=== PATIENT | female | born 1970 | race Caucasian/White ===

== ENCOUNTER 2016-11-01 21:02 | Emergency (ER) | payer OTHER ==
[~2016-11-01] VITALS: Ht 170.2 cm; Wt 59.1 kg
[~2016-11-01 21:02] MED LIST: PROM25TA14 PO
[2016-11-01 21:07] VITALS: BP 127/85; PULSE 104; RESP 16; O2SAT 98
--- NOTE | 2016-11-01 22:40 | ED.REPORT ---
HPI-General Illness Date of Service Nov 01, 2016 ED Provider: Dr. Gutierrez 46 y/o female with a hx of IV heroin and meth use, Hep C and MRSA presents to the ED complaining of severe shaking = about 6 hours ago. The pt states she last used heroin, obtained from a reliable source, 5 hours ago and 15 minutes later she began shaking and experiencing chills. Associated sx include subjective fever, nausea, vomiting for the last 2 hours, myalgia and neck pain due to severe shaking. In the ED, her temperature is 100.2. The pt is signed up for an intake methadone program starting next week. She denies . Nursing Notes Stated Complaint: NAUSEA, VOMITING, HEADACHE, POSSIBLY SEPTIC Chief Complaint: Female Abdominal Pain Nursing Notes Reviewed: Yes Allergies: Coded Allergies: cephalexin (Verified Allergy, Severe, HIVES, RESP DIFFICULTY, 05/01/14) clindamycin (Verified Allergy, Intermediate, Hives, 10/11/15) Scheduled PRN Promethazine (Promethazine) 25 Mg Tablet 25 MG PO Q6H PRN PRN For Nausea General Time Seen by MD: 22:40 Chief Complaint Other (shaking) Hx Obtained From: Patient Arrived By: Walk-in Sudden in Onset?: Yes Onset Occurred: 1 - 4 hours ago Symptom Duration: Since onset Quality: Painful (myalgia) Severity: Current: Moderate Severity: Maximum: Moderate Recent Healthcare: Recent doctor visit Past Medical History Past Medical History 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 Hep C Reports: Migraines Past Surgical History 2 elective breast augmentation surgeries 1994 and 2008, knee surgery bladder surgery Smoking History Current Every Day Smoker Social History Alcohol Use: Denies alcohol use Drug Use: IV drugs (Heroin), Meth Other Social History: Good social support, Local resident, Homeless 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 Physical Exam Vital Signs Vital Signs Date Time Temp Pulse Resp B/P Pulse Ox O2 Delivery O2 Flow Rate FiO2 11/02/16 02:29 36.8 78 16 104/56 97 Room Air 11/02/16 01:22 37.2 11/01/16 23:50 37.8 91 118/62 94 Room Air 11/01/16 21:07 37.4 104 16 127/85 98 Room Air Initial VS: Reviewed Head / Eyes: Atraumatic, Normocephalic, PERRL ENT: Mucous membranes moist, Conjunctiva normal, No scleral icterus Neck: Supple, Non-tender, Full range of motion Abdomen / GI: Soft, Non-tender, No guarding, No rebound, No distention Extremities: Vascular intact, Neuro intact, No swelling, No tenderness Skin: Warm, Dry, No cyanosis Neurologic: Alert, Oriented, Nonfocal General/Constitutional: Awake, Alert, Cooperative Febrile Diaphoretic I agree with the pt's assessment that she might be septic. Neck: Atraumatic, Supple, Full range of motion No nuchal rigidity. Respiratory / Chest: Atraumatic, Breath sounds NL, Breath sounds = bilat, No respiratory distress, No rales, No rhonchi, No wheezing Cardiovascular: Heart rate NL, Regular rhythm, No gallop Heart Sounds / Murmur: Positive: Systolic murmur present.. Interpretation & Diagnostics Lab Results Interpretation Result Diagram: 11/01/16 2338 11/01/16 2338 Test 11/01/16 22:53 11/01/16 23:38 11/01/16 23:39 11/02/16 02:10 Urine Color Dark yellow (YELLOW) Urine Appearance Cloudy (CLEAR,HAZY) Urine pH 5.5 (5.0-8.0) Urine Specific [place] 1.016 (1.003-1.035) Urine Protein Negativemg/dL (NEG,TRACE) Urine Glucose (UA) Negativemg/dL (NEGATIVE) Urine Ketones Negativemg/dL (NEGATIVE) Urine Occult Blood Negative (NEGATIVE) Urine Nitrite Negative (NEGATIVE) Urine Bilirubin Negative (NEGATIVE) Urine Urobilinogen Normalmg/dL (NORMAL) Urine Leukocyte Esterase Small (NEGATIVE) Urine RBC 0-2/hpf (0-2) Urine WBC 11-50/hpf (0-5) Urine Epithelial Cells Moderate/hpf (NONE-MOD) Urine Crystals Amorphous urates (NONE Urine Bacteria Few/hpf (NONE-FEW) Urine Hyaline Casts None/lpf (NONE) Urine Granular Casts None seen (NONE SEEN) Urine Waxy Casts None seen (NONE SEEN) Urine Red Blood Cell Casts None seen (NONE SEEN) Urine White Blood Cell Casts None seen (NONE SEEN) Urine Mucus Present (None Seen) Urine Trichomonas None seen (NONE SEEN) Urine Yeast None (NONE SEEN) Urinalysis Comment None Urine Culture Reflexed Indicated Hold Urine Received (Received) White Blood Count 7.9th/mm3 (3.8-10.1) Red Blood Count 4.07mil/mm3 (3.90-5.20) Hemoglobin 13.2g/dL (12.0-15.6) Hematocrit 38.6% (35.0-46.0) Mean Corpuscular Volume 94.8fL (81-100) Mean Corpuscular Hemoglobin 32.4pg (27.0-35.0) Mean Corpuscular Hemoglobin Concent 34.2% (32.0-37.0) Red Cell Distribution Width 11.8% (12.3-15.4) Platelet Count 193bil/L (150-400) Neutrophils (%) (Auto) 92.0% (40-74) Lymphocytes (%) (Auto) 6.3% (14-46) Monocytes (%) (Auto) 1.0% (4-12) Eosinophils (%) (Auto) 0.3% (0-5) Basophils (%) (Auto) 0.1% (0-3) Sodium Level 135mEq/L (134-144) Potassium Level 3.6mEq/L (3.5-5.2) Chloride Level 95mEq/L (97-108) Carbon Dioxide Level 22mmol/L (18-29) Blood Urea Nitrogen 10mg/dL (6-24) Creatinine 0.56mg/dL (0.57-1.00) Estimat Glomerular Filtration Rate 166mL/min (>59) Glucose Level 101mg/dL (60-99) Calcium Level 9.1mg/dL (8.5-10.1) Magnesium Level 1.4mg/dL (1.6-2.6) Total Bilirubin 0.9mg/dL (0.0-1.2) Aspartate Amino Transf (AST/SGOT) 58U/L (0-50) Alanine Aminotransferase (ALT/SGPT) 30U/L (0-32) Alkaline Phosphatase 83U/L (25-150) Total Protein 7.5g/dL (6.4-8.4) Albumin 3.7g/dL (3.4-5.0) Lipase 12U/L (13-60) Lactic Acid Level 1.0mmol/L (0.4-2.0) Total Creatine Kinase 44U/L (21-215) Procalcitonin 2.17ng/mL (0.00-0.08) CSF Appearance Clear (CLEAR) CSF Color Colorless (COLORLESS) CSF WBC 0/mm3 (0-5) CSF RBC 0/mm3 CSF Mononuclear WBCs % CSF Polynuclear WBCs % CSF Other Cells CSF Glucose 63mg/dL (45-90) CSF Total Protein 21mg/dL (15-45) X-Ray Chest Interpretation Chest Xray Interpretation: Normal View: Portable, 1 view Interpretation / Wet Read by: Wet read ED physician Procedures Lumbar Puncture Time: 02:18 Procedure Performed by: ED physician Consent / Setup / Site Prep: Informed consent provided, Consent from patient Skin Preparation Agent: Betadine Local Anesthesia: Lidocaine 1% Procedural Sedation/Analgesia: Analgesia: Dilaudid LP Needle Gauge: 25 gauge Inserted Needle at: L4 L5 Post-Procedure / Complications: Antibiotic oint applied, Dressing applied, No complications, Tolerated procedure well, Patient stable Re-Eval/Medical Decision Med Decision/Clinical Course This is a very pleasant 46-year-old female who presents with subjective fever chills headache and vomiting shortly after injecting heroin. She looked moderately on presentation. She was resuscitated with fluids and Zofran. Laboratory work was reassuring. No indicators biochemically of sepsis. Due to fact that she had a rather precipitous headache and looked ill I felt that meningitis and subarachnoid hemorrhage needed to be completely ruled out. Ms. Moran concurred. Informed consent was obtained. Risks were explained. Pain, infection, nerve injury, failed attempts and spinal headache. CT scan brain was performed and was normal. Lumbar puncture was performed without any difficulty. CSF studies came back with 0 whites and 0 reds and no polys. Chest x-ray was normal. Urine sample was negative. Blood cultures have been drawn. No bacterial source of infection was identified. I think this may have been a biochemical reaction to the heroin. Either way after fluids and Zofran she looked and felt much better. She had some pain associated with the lumbar puncture and this was adequately treated. At discharge vitals were stable. She never spiked a fever. She looked good. She felt ready to be discharged home. I will ask her to have a recheck in 8-10 hours. I did consult with our hospitalist and we have decided to give her a single dose of antibiotics air on the side of caution and event that she turns out to be bacteremic. She has one to come back here in 12 hours to have the first set of blood cultures reviewed. Source of Hx: Old records Counseled Regarding: Diagnosis, Lab results Discharge & Departure Primary Impression: Heroin abuse Additional Impressions: Headache Headache type: unspecified Headache chronicity pattern: acute headache Intractability: not intractable Qualified Code: R51 - Headache Chills (without fever) Discharge Condition All VS Reviewed: Yes Patient Instructions: Acute Headache (GEN), Adverse Drug Reaction (ED) Additional Instructions: The CAT scan, x-ray, cervical spinal fluid testing and laboratory work was all normal. No evidence of an infection. I suspect that her reaction was to the heroin. Stop abusing heroin. Follow through with the Suboxone clinic. Do not drive tonight's received sedating medications. It was very nice meeting you. Do not hesitate to return if any problems or any new or worsened symptoms. We have sent out blood cultures. There is a chance that she will a bloodstream infection and this will need antibiotics. This needs to be followed up with daily. I would like you to come back to the hospital and have this checked in about 8-12 hours. If the cultures are negative and he can check daily for the next couple of days. He may also do this through the referral clinic or any urgent care in town.. Referrals: Kaushal Alford MD (PCP) Scribe Attestation Portions of this note were transcribed by Guanako Whitley. I,, personally performed the history, physical exam and medical decision-making;I reviewed and confirmed the accuracy of the information in the transcribed note. Signed by Pamela Jordan. 11/02/16 00:23 copies to: Kaushal Alford MD, Todd P DO Nov 01, 2016 22:40 Guanako Whitley Nov 01, 2016 23:13
[2016-11-01] MEDS ORDERED: Ondansetron 2 mg/mL 2 mL Inj IVPUSH PRN (23:00)
[2016-11-01] MEDS: 0.9% Sodium Chloride 1,000 ML IV SCH (23:44)
[2016-11-01 23:50] VITALS: BP 118/62; PULSE 91; O2SAT 94
[2016-11-01 23:59] LABS: BASOPHILS % (AUTO) 0.1 % (0-3); EOSINOPHILS % (AUTO) 0.3 % (0-5); Mean Corpuscular Hemoglobin 32.4 pg (27.0-35.0); Mean Corpuscular Volume 94.8 fL (81-100); Platelet Count 193 bil/L (150-400)
[2016-11-02 00:02] LABS: APPEARANCE,URINE CLOUDY (CLEAR,HAZY); COLOR,URINE DARK YELLOW (YELLOW); OCCULT BLOOD,URINE NEGATIVE (NEGATIVE); PH,URINE 5.5 (5.0-8.0); UROBILINOGEN,URINE NORMAL (NORMAL)
[2016-11-02 00:17] LABS: Magnesium 1.4 mg/dL (1.6-2.6)
[2016-11-02] MEDS ORDERED: Piperacillin-Tazo 3.375 Gm Inj 3.375 GM in Dextrose 5% Minibag Plus 50 ML IV ONE ×2 (00:20→03:05)
[2016-11-02] MEDS: 0.9% Sodium Chloride 1,000 ML IV SCH (00:58)
[2016-11-02 02:29] VITALS: BP 104/56; PULSE 78; RESP 16; O2SAT 97
[2016-11-02] MEDS ORDERED: HYDROmorphone 1 mg/mL Inj IVPUSH ONE (02:35)
[2016-11-02 02:36] LABS: APPEARANCE,CSF CLEAR (CLEAR); COLOR,CSF COLORLESS (COLORLESS); WHITE BLOOD CELL,CSF 0 /mm3 (0-5)
[2016-11-02 04:19] VITALS: BP 101/48; PULSE 63; RESP 16; O2SAT 96
--- NOTE | 2016-11-02 08:04 | DRSVH ---
PROCEDURE: CT BRAIN WITHOUT CONTRAST ([id number]) INDICATIONS: imda, headache, stiff neck TECHNIQUE: Noncontrast 4.5 mm thick angled axial sections acquired from the foramen magnum to the vertex, with c oronal reformats. COMPARISON: [facility], CT, BRAIN W/O CONTRAST, 09/07/2006, 20:21. FINDINGS: Image quality: Excellent. CSF spaces: Basal cisterns are patent. No extra-axial fluid collections. Ventricles are normal in size and shape. Brain: No midline shift. No intracranial masses or hemorrhage. Frias-white matter interface is norm al. Skull and face: Calvarium and visualized facial bones are intact, without suspicious lesions. Sinuses: Visualized sinuses and mastoids are clear. IMPRESSION: Normal head CT. 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 Dictated by: Itzel Spann M.D. on 11/02/2016 at 8:01 Approved by: Itzel Spann M.D. on 11/02/2016 at 8:02
--- NOTE | 2016-11-02 08:28 | DRSVH ---
PROCEDURE: X-RAY CHEST ONE VIEW, PORTABLE ([id number]) INDICATIONS: fever, chills, ivda TECHNIQUE: One view of the chest was acquired. COMPARISON: [facility], , CHEST 1VW (PORTABLE), 12/13/2007, 21:31. FINDINGS: Surgical changes and devices: None. Lungs and pleura: No pleural effusions or pneumothorax. Lungs are clear. Mediastinum: Mediastinal contours appear normal. Heart size is normal. Bones and chest wall: No suspicious bony lesions. Overlying soft tissues appear unremarkable. IMPRESSION: No acute cardiopulmonary disease. Dictated by: Calderon Kyle [facility] Interpreted: Yariel Matos MD on 11/02/2016 at 8:25 Transcribed by: NIKOLAI on 11/02/2016 at 8:27 Approved by: Yariel Matos M.D. on 11/02/2016 at 9:16
== END 2016-11-02 04:18 | disposition home or self-care (01) ==
LOC: SED 21:02
DX: F11.10 Opioid abuse, uncomplicated (principal); R68.83 Chills (without fever); R50.9 Fever, unspecified; G43.909 Migraine, unspecified, not intractable, without status migrainosus; F17.200 Nicotine dependence, unspecified, uncomplicated; Z59.0 Homelessness; Z88.1 Allergy status to other antibiotic agents
CPT/HCPCS: 36415; 62270; 70450; 71010; 80053; 81000; 81025; 82550; 82945; 83605; 83690; 83735; 84145; 84155; 85025; 87040; 87070; 87086; 87088; 87205; 89051; 96361; 96365; 96375; 99285; J2405; J2543; J7030

== ENCOUNTER 2016-11-09 04:04 | Emergency (ER) | payer OTHER ==
[~2016-11-09] VITALS: Ht 170.2 cm; Wt 62.7 kg
[2016-11-09 04:15] VITALS: BP 141/87; PULSE 74; RESP 16; O2SAT 99
--- NOTE | 2016-11-09 04:17 | ED.REPORT ---
HPI-Extremity Problem Upper Date of Service Nov 09, 2016 ED Provider: Colton Galindo MD Pt is a 46 y/o female w/ a hx of IVDA, frequent MRSA abscesses, Hep C, presenting to the ED c/o an area of redness, swelling, and pain over the dorsum of the right hand onset yesterday. The patient was seen in the ED 11/01 for rigors after injecting heroin. She was treated with IV antibiotics and LP and chest x-ray during that visit were negative. Yesterday, she began to develop swelling over an area of the dorsum of her right hand which has become painful and red. She denies fever, chills. Nursing Notes Stated Complaint: RT HAND SWOLLEN,NAUSEA Chief Complaint: Extremity Trauma Nursing Notes Reviewed: Yes Allergies: Coded Allergies: cephalexin (Verified Allergy, Severe, HIVES, RESP DIFFICULTY, 11/09/16) clindamycin (Verified Allergy, Intermediate, Hives, 11/09/16) Scheduled PRN Promethazine (Promethazine) 25 Mg Tablet 25 MG PO Q6H PRN PRN For Nausea General Time Seen by MD: 04:15 Chief Complaint Other (R hand swelling) Hx Obtained From: Patient Arrived By: Walk-in Onset Occurred: Yesterday Symptom Duration: Since onset Location: : Hand right Quality: Painful Severity: Current: Moderate Severity: Maximum: Moderate Recent Healthcare: Recent doctor visit, Recent testing Past Medical History Past Medical History IV heroin and methamphetamine abuse MRSA - frequent abscesses Hep C Reports: Migraines Past Surgical History 2 elective breast augmentation surgeries 1994 and 2008, knee surgery bladder surgery Smoking History Current Every Day Smoker Social History Alcohol Use: Denies alcohol use Drug Use: IV drugs, Meth Other Social History: Good social support, Local resident, Homeless 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 Physical Exam Initial Vital Signs Vital Signs (First) Date Time Temp Pulse Resp B/P Pulse Ox O2 Delivery O2 Flow Rate FiO2 11/09/16 04:15 36.8 74 16 141/87 99 Room Air Initial VS: Reviewed, Vital signs normal Head / Eyes: Atraumatic, Normocephalic, PERRL ENT: Mucous membranes moist, Conjunctiva normal, No scleral icterus Neck: Supple, Full range of motion Respiratory: No respiratory distress Cardiovascular: Intact distal pulses Abdomen / GI: No distention Lower Extremities: Vascular intact, Neuro intact, No swelling Neurologic: Alert, Oriented, Nonfocal Psychiatric: Mood/affect normal, Behavior normal, Normal thought content General/Constitutional: Awake, Alert, No acute distress, Cooperative, Not toxic appearing Skin: Warm, Dry, Intact Abscess Notes: Large abscess over the ulnar aspect of the dorsum fo the right hand Multiple track mueller Procedures Incision & Drainage Abscess Time: 04:39 Procedure Performed by: ED physician Consent / Setup / Site Prep: Consent from patient, Hand hygiene observed, Stand sterile technique, Sterile drapes applied Location of Abscess: Dorsum of right hand Skin Preparation Agent: [place] Local Anesthesia: Lidocaine w epi 1% Incised Abscess with Scalpel: #11 Pus Drained: Medium, Purulent discharge Irrigation: Yes, Copious Post-Procedure / Complications: Packing placed (1/4 inch), Dressing applied , No complications, Condition improved, Tolerated procedure well, Patient stable Re-Eval/Medical Decision Med Decision/Clinical Course 46-year-old female with a long history of opioid dependence/heroin use. She was in methadone treatment but relapsed and used heroin. She is now attempting to get back into treatment. Abscess drained on the right hand without difficulty. Patient is being discharged home on trimethoprim sulfamethoxazole. Follow-up as needed for recurrent abscess. Source of Hx: Old records Re-Evaluation/Progress : Time of Eval: 04:53 Re-Evaluation/Progress Note: Pt rechecked. I&D performed without complication. Informed pt of plan for discharge. Pt understands and agrees with plan for discharge. F/U instructions and RTER warnings given. All questions addressed. Counseled Regarding: Diagnosis, Need for follow-up, When/why to return to ED Discharge & Departure Impression: Primary Impression: Abscess of hand, right Additional Impression: Heroin abuse Disposition: Home Discharge Condition All VS Reviewed: Yes Condition: Stable Patient Instructions: Abscess Follow-up (ED), Abscess Incision and Drainage (DC ) Additional Instructions: Change the dressing daily or if it soaks through. Remove the packing in 1-2 days. Follow-up as needed if there is worsening. Trimethoprim sulfamethoxazole DS one by mouth twice a day, #20 dispensed. Referrals: Kaushal Alford MD (PCP) Scribe Attestation Portions of this note were transcribed by Luke Beach. I, Dr. Galindo personally performed the history, physical exam and medical decision-making; I reviewed and confirmed the accuracy of the information in the transcribed note. copies to: Kaushal Alford MD, Howard L MD Nov 09, 2016 04:17 [place] Nov 09, 2016 04:20
[2016-11-09] MEDS ORDERED: Lidocaine 2%-Epi 1:100,000 20 mL Inj ONE (04:29)
[2016-11-09 05:06] VITALS: BP 132/89; PULSE 71; RESP 17; O2SAT 99
[2016-11-09] MEDS ORDERED: _Trimethoprim-Sulfa 160/800 mg Tablet PO SCH (08:30)
== END 2016-11-09 05:13 | disposition home or self-care (01) ==
LOC: SED 04:04
DX: L02.511 Cutaneous abscess of right hand (principal); F11.10 Opioid abuse, uncomplicated; G43.909 Migraine, unspecified, not intractable, without status migrainosus; F17.200 Nicotine dependence, unspecified, uncomplicated; Z86.14 Personal history of Methicillin resistant Staphylococcus aureus infection; Z98.890 Other specified postprocedural states; Z88.1 Allergy status to other antibiotic agents

== ENCOUNTER 2016-11-10 16:49 | Observation (INO) | payer OTHER ==
[~2016-11-10] VITALS: Ht 170.2 cm; Wt 62.1 kg
[2016-11-10 16:51] VITALS: BP 152/96; PULSE 106; RESP 22; O2SAT 98
--- NOTE | 2016-11-10 17:12 | ED.REPORT ---
HPI-Abd Pain F 40 and Over Date of Service Nov 10, 2016 ED Provider: Gilles Bianchi MD Patient is a 46 year old female with a history of IV heroin use and hepatitis C who presents to the ED complaining of vomiting for the past 3 days. Associated symptoms include subjective fever, chills, headache and nausea. Patient states she has abdominal pain but attributes it to vomiting so much. She reports she is unable to pass gas and denies diarrhea. The patient reports that she was seen here at the ED on 11/09/16 where she had an abscess drained and was placed on antibiotics. She states she has been unable to keep anything down and is worried she hasn't been able to keep down the antibiotic.Patient states that she has used IV heroin for the past 3 days but she smoked yesterday. Nursing Notes Stated Complaint: VOMITING Chief Complaint: Female Abdominal Pain Nursing Notes Reviewed: Yes Allergies: Coded Allergies: cephalexin (Verified Allergy, Severe, HIVES, RESP DIFFICULTY, 11/10/16) clindamycin (Verified Allergy, Intermediate, Hives, 11/10/16) Scheduled PRN Promethazine (Promethazine) 25 Mg Tablet 25 MG PO Q6H PRN PRN For Nausea General Time Seen by MD: 17:09 Chief Complaint Other (vomiting) Hx Obtained From: Patient Arrived By: Walk-in Sudden in Onset?: Yes Onset Occurred: 3 days ago Symptom Duration: Since onset Location: : Diffuse Quality: Dull Severity: Current: Mild Associated with: Reports: Chills, Nausea Recent Healthcare: Recent doctor visit Past Medical History Past Medical History 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 Skin: Denies Itching Physical Exam Vital Signs Vital Signs (First) Date Time Temp Pulse Resp B/P Pulse Ox O2 Delivery O2 Flow Rate FiO2 11/10/16 16:51 36.6 106 22 152/96 98 Room Air Initial VS: Reviewed General/Constitutional: Awake, Alert Distress / Hydration: Positive: Distress mild actively retching Respiratory / Chest: Atraumatic, Breath sounds NL, Breath sounds = bilat, No respiratory distress Cardiovascular: Heart rate NL, Regular rhythm, Heart sounds NL, No gallop, No murmurs, No rubs Abdomen: Atraumatic, Soft Back: Atraumatic, No CVA tenderness Head / Eyes: Normocephalic, PERRL, EOMI Skin: Warm, Dry Neurologic: Oriented X3, Speech NL, No motor deficits, No sensory deficits R hand 1cm abscess on dorsum near 5th mcp joint. slight surrounding erythema. no proximal streaking Interpretation & Diagnostics Lab Results Interpretation Result Diagram: 11/10/16 1811 11/10/16 1811 Test 11/10/16 18:11 11/10/16 19:53 White Blood Count 7.3th/mm3 (3.8-10.1) Red Blood Count 4.31mil/mm3 (3.90-5.20) Hemoglobin 13.8g/dL (12.0-15.6) Hematocrit 39.8% (35.0-46.0) Mean Corpuscular Volume 92.3fL (81-100) Mean Corpuscular Hemoglobin 32.0pg (27.0-35.0) Mean Corpuscular Hemoglobin Concent 34.7% (32.0-37.0) Red Cell Distribution Width 11.8% (12.3-15.4) Platelet Count 283bil/L (150-400) Neutrophils (%) (Auto) 67.6% (40-74) Lymphocytes (%) (Auto) 22.9% (14-46) Monocytes (%) (Auto) 8.6% (4-12) Eosinophils (%) (Auto) 0.5% (0-5) Basophils (%) (Auto) 0.1% (0-3) Sodium Level 130mEq/L (134-144) Potassium Level 4.1mEq/L (3.5-5.2) Chloride Level 87mEq/L (97-108) Carbon Dioxide Level 23mmol/L (18-29) Blood Urea Nitrogen 16mg/dL (6-24) Creatinine 1.60mg/dL (0.57-1.00) Estimat Glomerular Filtration Rate 49mL/min (>59) Glucose Level 113mg/dL (60-99) Lactic Acid Level 0.8mmol/L (0.4-2.0) Calcium Level 10.4mg/dL (8.5-10.1) Magnesium Level 1.9mg/dL (1.6-2.6) Total Bilirubin 1.3mg/dL (0.0-1.2) Aspartate Amino Transf (AST/SGOT) 93U/L (0-50) Alanine Aminotransferase (ALT/SGPT) 41U/L (0-32) Alkaline Phosphatase 95U/L (25-150) Total Protein 9.6g/dL (6.4-8.4) Albumin 4.5g/dL (3.4-5.0) Lipase 11U/L (13-60) Procalcitonin 0.96ng/mL (0.00-0.08) Urine Color Dark yellow (YELLOW) Urine Appearance Slightly cloudy Urine pH 5.5 (5.0-8.0) Urine Specific [place] 1.030 (1.003-1.035) Urine Protein 30mg/dL (NEG,TRACE) Urine Glucose (UA) Negativemg/dL (NEGATIVE) Urine Ketones Tracemg/dL (NEGATIVE) Urine Occult Blood Trace (NEGATIVE) Urine Nitrite Negative (NEGATIVE) Urine Bilirubin Negative (NEGATIVE) Urine Urobilinogen Normalmg/dL (NORMAL) Urine Leukocyte Esterase Negative (NEGATIVE) Urine RBC 0-2/hpf (0-2) Urine WBC 0-5/hpf (0-5) Urine Epithelial Cells Moderate/hpf (NONE-MOD) Urine Crystals None seen (NONE SEEN) Urine Bacteria Few/hpf (NONE-FEW) Urine Hyaline Casts 5/20/lpf (NONE) Urine Granular Casts None seen (NONE SEEN) Urine Waxy Casts None seen (NONE SEEN) Urine Red Blood Cell Casts None seen (NONE SEEN) Urine White Blood Cell Casts None seen (NONE SEEN) Urine Mucus Present (None Seen) Urine Trichomonas None seen (NONE SEEN) Urine Yeast None (NONE SEEN) Urinalysis Comment None Urine Culture Reflexed Not indicated Procedures Incision & Drainage Abscess I & D Abscess: #14 scalpel Time: 21:22 Procedure Performed by: ED physician Consent / Setup / Site Prep: Consent from patient, Time-out performed, Hand hygiene observed Location of Abscess: right dorsum Skin Preparation Agent: Other (chloraprep) Local Anesthesia: Lidocaine 1% Pus Drained: Bloody Irrigation: Yes, Copious Post-Procedure / Complications: Dressing applied, No complications, Condition improved, Tolerated procedure well, Patient stable Re-Eval/Medical Decision Med Decision/Clinical Course 46-year-old female with vomiting 3 days since being started on trimethoprim sulfa. Reddening is increased sharply from baseline, she appears dehydrated is tachycardic on arrival and is mildly hyponatremic. Normal saline 1 L and repeat I&D of right upper extremity abscess which did not return any pus. Bactrim has been discontinued. I believe it would be reasonable at this point to not give further antibiotics and observe her hand infection. Will admit to the hospitalist service for hydration and observation. Re-Evaluation/Progress #1: Time of Eval: 20:06 Re-Evaluation/Progress Note: Discussed labs and plan for I&D of abscess on the right hand. Discussed plan for admit. Patient understands and agrees to plan. All questions were addressed. Re-Evaluation/Progress #2: Time of Eval: 21:38 Patient Status: Condition improved Re-Evaluation/Progress Note: Finished I&D. Patient is feeling less nauseous Consultation : Referral / Consult Name: Jordyn Mahajan DO Consulted With: Hospitalist Call Returned at: 20:19 Exerciser Horse: Agrees with eval, Agrees with plan, Accepts admit Counseled Regarding: Diagnosis, Lab results, Need for admission Discharge & Departure Primary Impression: Acute renal failure Acute renal failure type: unspecified Qualified Code: N17.9 - Acute kidney failure, unspecified Additional Impression: Abscess of hand, right Disposition: ADMITTED TO HOSPITAL Discharge Condition All VS Reviewed: Yes Condition: Stable Referrals: Kaushal Alford MD (PCP) Pamela Attestation Portions of this note were transcribed by Alisha Mckeon. I, Dr. Bianchi personally performed the history, physical exam and medical decision-making; I reviewed and confirmed the accuracy of the information in the transcribed note. Signed by:Pamela Cam, 11/10/16 copies to: Kaushal Alford MD, Donald L MD Nov 10, 2016 17:11 Cherry Mckeon Nov 10, 2016 17:21
[2016-11-10] MEDS ORDERED: 0.9% Sodium Chloride 1,000 ML IV ONE (17:17)
[2016-11-10] MEDS ORDERED: Promethazine Inj 25 MG in 0.9% Sodium Chloride 50 ML IV ONE (17:20)
[2016-11-10 18:15] LABS: BASOPHILS % (AUTO) 0.1 % (0-3); EOSINOPHILS % (AUTO) 0.5 % (0-5); MONOCYTES % (AUTO) 8.6 % (4-12); Mean Corpuscular Volume 92.3 fL (81-100); NEUTROPHILS % (AUTO) 67.6 % (40-74); Platelet Count 283 bil/L (150-400)
[2016-11-10 18:38] LABS: Magnesium 1.9 mg/dL (1.6-2.6)
[2016-11-10 20:20] VITALS: BP 143/92; PULSE 83; RESP 16; O2SAT 98
[2016-11-10 20:22] LABS: APPEARANCE,URINE SLIGHTLY CLOUDY (CLEAR,HAZY); COLOR,URINE DARK YELLOW (YELLOW)
[2016-11-10 20:23] LABS: OCCULT BLOOD,URINE TRACE (NEGATIVE); PH,URINE 5.5 (5.0-8.0); UROBILINOGEN,URINE NORMAL (NORMAL)
[2016-11-10] MEDS ORDERED: Alum-Mag Hydrox-Simeth 30 mL Suspension PO PRN (21:05)
[2016-11-10] MEDS ORDERED: Ondansetron 2 mg/mL 2 mL Inj IVPUSH PRN (21:05)
[2016-11-10] MEDS ORDERED: Polyethylene Glycol (PEG) 17 Gm Powder PO PRN (21:05)
[2016-11-10 22:23] VITALS: BP 143/92; PULSE 83; RESP 16; O2SAT 98
[2016-11-10 22:30] VITALS: BP 131/76; PULSE 79; RESP 16; O2SAT 97
[2016-11-11] VITALS (7 sets, daily range): BP systolic 124–140; BP diastolic 76–93; PULSE 70–77; RESP 16; O2SAT 96–98
[2016-11-11] MEDS: Heparin 5,000 Unit/mL Inj SUBQ SCH ×3 (00:12→19:59)
--- NOTE | 2016-11-11 03:28 | PCM.HPMED ---
Subjective Date of Service Nov 10, 2016 Primary Provider: Admitting Physician: Jordyn Mahajan DO Primary Care Physician: Kaushal Alford MD Attending Physician: Jordyn Mahajan DO Chief Complaint: Hand abscess History of Present Illness: 38-year-old female with history of IV heroin and methamphetamine use, MRSA abscesses, and recent hep C diagnosis presents to the emergency department due to 5 days of right hand pain, nausea and vomiting, and fever. The patient states that 5 days ago she began noticing increased erythema, swelling, and pain over the medial dorsal surface (fifth MCP joint) after injecting heroin into that area the day before. The patient states that she presented on that date emergency department, although previous presentation on November 01 was due to shaking, subjective fevers, nausea and vomiting following a heroin injection. In any case, the patient presented yesterday and the abscess was drained without difficulty. She was discharged with Bactrim. She returns today due to continuing nausea vomiting and increased swelling of the abscess. She states that she has had a measured fever of 103, and is experiencing chills, nausea, and nonbloody emesis 10 daily for the last 3 days. Patient also states she is lost her appetite. She denies any diarrhea, dizziness, lightheadedness, abdominal pain, chest pain, shortness of breath, tingling or loss of sensation. Patient has been using heroin for about 6 years and previously got clean for about 2 before relapsing. The patient was on methadone before moving to [place] where she was unable to continue methadone use, causing her to fly home in relapse. Patient is attempting to get back into rehabilitation. 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 Patient also had a previous history of methamphetamine use as well as alcohol. Patient reports that Dr. Hamilton diagnosed her with hepatitis C last week, she is yet to start treatment. In the emergency department the wound is again being drained. The patient was given 1 L normal saline and promethazine for nausea. Blood work shows an elevated pro-calcitonin, LFTs, acute kidney injury, and multiple other electrolyte imbalances. There is no leukocytosis. Urine was also clean. Blood cultures were obtained. Review of Systems: Complete review of systems performed; pertinent positives and negatives per history of present illness, all other systems reviewed and are negative Allergies Coded Allergies: cephalexin (Verified Allergy, Severe, HIVES, RESP DIFFICULTY, 11/10/16) clindamycin (Verified Allergy, Intermediate, Hives, 11/10/16) Home Medications None reported PMH IV heroin and methamphetamine abuse MRSA - frequent abscesses Hep C Reports: Migraines Surgical History Left knee surgery ACL/MCL/Meniscus 2 elective breast augmentation surgeries 1994 and 2008 Family History No family history of alcohol or drug abuse; no history of hep C, no history of cardiac disease per patient Social History Hx Alcohol Use: Yes (25 years of 2 drinks per day) Hx Substance Use: Yes (Heroin) Hx Tobacco Use: No Smoking Status: Never Smoker Living Arrangement: with Friends/Roommate Exam Vital Signs Vital Sign - Last Date Time Temp Pulse Resp B/P Pulse Ox O2 Delivery O2 Flow Rate FiO2 11/10/16 20:20 37.1 83 16 143/92 98 Room Air Exam General: Cooperative and unkept female who appears older than stated age HEENT: PERRLA, EOMI, nonicteric, membranes dry Lymph: No lymphadenopathy Cardio: Regular rate and rhythm no murmurs rubs or gallops, pulses equal upper and lower extremity Respiratory: CTA bilaterally, no wheezes, no crackles, good respiratory effort GI: Soft, positive bowel sounds, nontender, nondistended : no giron in place Extremities: No edema,sensation intact, numerous medium and large sized abscesses throughout the upper extremities Psych: Appropriate mood and affect Neuro: CN II through XII grossly intact, sensation intact throughout Skin: No rash, no ecchymosis, warm, dry Lab and Diagnostics Result Diagram: 11/10/16 1811 11/10/16 1811 Assessment & Plan 38-year-old female with history of IV heroin and methamphetamine use, MRSA abscesses, and recent hep C diagnosis presents to the emergency department due to 5 days of right hand pain, nausea and vomiting, and fever. Right hand abscess second to IV drug use; present on admission; ongoing -Patient is a persistent and chronic IV drug user with abscesses occupying most of her venous access in the upper extremities -Patient was recently seen for the abscess which was drained and reaccumulated within 24 hours -Low suspicion currently for osteomyelitis although this is ongoing possibility -Debridement in the emergency department -Blood cultures obtained in the emergency department -Procalcitonin 0.96 -Vancomycin and cefepime started -Lactic acid normal -Recheck labs in a.m. -Blood cultures positive will reinitiate workup for endocarditis and consult infectious disease -CT in AM, ordered FRED, acute, POA -last creatinine 0.59 one week prior to presentation -possible prerenal given history (reviewed recent medical records in EMR) / recent tmp-smx use -repeat creatinine in am Hepatitis C infection; present on admission; ongoing -Patient reports that she was recently diagnosed with hepatitis C by Dr. Kenny -Elevated LFTs -Last record in [facility] (reviewed outpatient records) indicates last appointment was January 2016 at which time the patient had not started treatment due to ongoing alcohol use -Viral load -Follow-up with GI as outpatient -Repeat CMP Chronic IV drug and alcohol abuse -Patient is attempting to get back into rehabilitation -She stopped previously but relapsed after she lost contact with methadone -Social work consult Disposition: Patient has been admitted to the general medical floor under observation more Full code Pain Evaluation: Adequate Pain Control Resuscitation Status: CPR: Attempt Resuscitation Attending Statement The patient was seen and examined together with house staff on 11/10/2016 and I agree with the history, exam and plan as outlined in the note above. Daryl Best DO Nov 10, 2016 21:14 Jordyn Mahajan DO Nov 11, 2016 04:00
[2016-11-11] MEDS: Vancomycin Dose per Pharmacist XX SCH ×2 (04:07→08:30)
[2016-11-11] MEDS ORDERED: Vancomycin Inj 1,000 MG in IV Premix 1 EACH IV ONE (04:25)
--- NOTE | 2016-11-11 05:25 | PCM.CONPHA ---
Subjective Date of Service: Nov 11, 2016 Requesting Provider: Daryl Best DO Hand abscess History of Present Illness hand abscess, 2/2 to IVDU Reason for Pharmacy Consult: Vancomycin Dosing Objective Assessment/Plan Assessment/Plan A/ - 38 y/o female patient receiving Vancomycin and Cefepime for empirical coverage of her hand abscess, secondary to IV drug injection - Afebrile at admission, WBC: 7.3, blood cultures are pending - Wt: 62.1kg, ht: 170cm, BMI: 21.4kg/m2, SCr: 1.6ml/dL (FRED, unknown baseline ), estimated clearance~43ml/min - ID consult ordered P/ - Give one time Vancomycin 1G iv. Floor pharmacist will follow up with am lab and order random trough if needed and determine the regimen Thank you for consulting clinical pharmacy in the care of the patient Noble Dooley Nov 11, 2016 05:25
[2016-11-11 05:35] LABS: BASOPHILS % (AUTO) 0.2 % (0-3); EOSINOPHILS % (AUTO) 1.5 % (0-5); MONOCYTES % (AUTO) 14.5 % (4-12); Mean Corpuscular Hemoglobin 31.7 pg (27.0-35.0); Mean Corpuscular Volume 93.3 fL (81-100); NEUTROPHILS % (AUTO) 48.7 % (40-74); Platelet Count 254 bil/L (150-400)
[2016-11-11] MEDS ORDERED: 0.9% Sodium Chloride 100 ML ONE (05:47)
[2016-11-11] MEDS ORDERED: Cefepime Inj 2,000 MG in Dextrose 5% Minibag Plus 100 ML IV SCH (08:30)
--- NOTE | 2016-11-11 14:16 | PCM.PNMED ---
Subjective Date of Service Nov 11, 2016 Subjective Right hand pain controlled. Afebrile. Awaiting hand CT scan Exam Vital Signs Vital Sign - Last Date Time Temp Pulse Resp B/P Pulse Ox O2 Delivery O2 Flow Rate FiO2 11/11/16 13:10 36.3 77 16 132/85 98 Room Air Intake and Output 11/10/16 11/10/16 11/11/16 Cumulative From/Thru 15:00 23:00 07:00 11/10/16 16:51 - 11/11/16 05:28 Intake Total 400 ml 400 ml Output Total 0 ml 0 ml Balance 400 ml 400 ml Intake Oral 400 ml 400 ml Output Urine Total 0 ml 0 ml # Bowel Movements 0 0 Exam General: Cooperative and unkept female who appears older than stated age HEENT: PERRLA, EOMI, nonicteric, membranes dry Lymph: No lymphadenopathy Cardio: Regular rate and rhythm no murmurs rubs or gallops, pulses equal upper and lower extremity Respiratory: CTA bilaterally, no wheezes, no crackles, good respiratory effort GI: Soft, positive bowel sounds, nontender, nondistended : no giron in place Extremities: No edema,sensation intact, numerous medium and large sized nodules throughout the upper extremities. Right hand is swollen dorsally. No fluctuance.tender Psych: Appropriate mood and affect Neuro: CN II through XII grossly intact, sensation intact throughout Skin: No rash, no ecchymosis, warm, dry IVs and Medications Medications Reviewed: Medications were reviewed in detail Lab and Diagnostics Result Diagram: 11/11/1651911/11/16519 Assessment & Plan 38-year-old female with history of IV heroin and methamphetamine use, MRSA abscesses, and recent hep C diagnosis presents to the emergency department due to 5 days of right hand pain, nausea and vomiting, and fever. #Right hand abscess second to IV drug use; failed outpatient treatment, present on admission; ongoing -Patient is a persistent and chronic IV drug user with abscesses occupying most of her venous access in the upper extremities -Patient was recently seen for the abscess which was drained and reaccumulated within 24 hours -Low suspicion currently for osteomyelitis although this is ongoing possibility -Debridement in the emergency department -Blood cultures pending -Procalcitonin 0.96 -Continue Vancomycin and cefepime -Lactic acid normal -CT of right hand pending #Hepatitis C infection; present on admission; ongoing -Patient reports that she was recently diagnosed with hepatitis C by Dr. Kenny -Elevated LFTs -Last record in [facility] (reviewed outpatient records) indicates last appointment was January 2016 at which time the patient had not started treatment due to ongoing alcohol use -Viral load -Follow-up with GI as outpatient #Chronic IV drug and alcohol abuse -Patient is attempting to get back into rehabilitation -She stopped previously but relapsed after she lost contact with methadone -Social work consult Disposition: Patient has been admitted to the general medical floor under observation possible discharge tomorrow if no abscess on repeat CT Full code VTE Mechanical Devices: Intermittant Pneumatic CD Resuscitation Status: CPR: Attempt Resuscitation Paulie العراقي MD Nov 11, 2016 14:16
[2016-11-11] MEDS ORDERED: Oritavancin Diphosphate 400 mg Vial IV ONE (15:50)
[2016-11-11] MEDS ORDERED: Oritavancin Diphosphate 1,200 MG in Dextrose 5% 880 ML IV ONE (15:55)
--- NOTE | 2016-11-11 16:50 | CONS ---
[address] [address] CONSULTATION REPORT PATIENT: WINIFRED WHATLEY : 1970 MR#: [id number] ADMIT: 11/10/2016 JOB ID: [id number] DATE OF SERVICE: 11/11/[address] العراقي for this consult. REASON FOR CONSULT: Right dorsal hand infection in an IV drug user. HISTORY OF THE PRESENT ILLNESS: The patient is a 46-year-old woman with longstanding IV drug use. She has been seen twice in the emergency department over the past five days with pain in the dorsal right hand, the site of an IV of any intravenous drug injection. She reports that the pain began after an injection in the right dorsal hand about six days ago. She then went to the emergency department because of swelling and pain in association with shaking chills, fever, nausea, and vomiting. That ER visit was approximately one week ago. At that time, the wound was evaluated. It was also notable that the patient had severe headache and so on the first ED visit on the she had a CT of the brain as well as a lumbar puncture that were negative. At the time of that admission the right dorsal hand inflammation was fairly minimal. She subsequently returned to the ER on November 09. At that time the hand was very clearly infected and she has continued to have fevers, chills, sweats, nausea, vomiting and generalized malaise. At that time, the patient had some drainage which was done from the right hand without any difficulty. Unfortunately it does not appear a culture was sent and she was sent home on trimethoprim sulfamethoxazole on November 09. She then returned to the ER for a third time on November 10, yesterday, with continued nausea, vomiting, shaking chills, and pain in the right hand and associated with some nausea and vomiting. At that time, the decision was made to admit her at least briefly to evaluate the situation. The patient tells me that overnight since admission her fever and chills seem to have moderated in her right hand and is actually getting better. She has full range of motion in that right hand, no weakness. She still has some nausea but no vomiting. No significant cough or sore throat. PAST MEDICAL HISTORY: 1. IV heroin and methamphetamine use. 2. History of recurrent MRSA abscesses. 3. Hepatitis C for which she is being followed by our GI Clinic. 4. Status post breast augmentation surgeries. 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 She is a cigarette smoker. She used to be a heavy alcohol consumer and has basically switched she says to these injectable drugs. She states that she is living with her children in the local area. FAMILY HISTORY: Negative for TB but it is notable that she had a significant other it sounds like at one point who did have TB and she was evaluated and found not to be infected herself. REVIEW OF SYSTEMS: Was done. At this point, the patient reports fever and chills that are moderating. She has a headache but it is mild and not as bad as the other day when she had an LP. No visual complaints. No significant sore throat. No cough or chest pain. She has had nausea and vomiting. They seem better overnight somewhat. No diarrhea, no dysuria. She has pain in her right hand. Remainder of the review of systems negative. PHYSICAL EXAMINATION: Reveals an afebrile woman. She has been afebrile since admission. Temp 36.3, pulse 77, respiratory rate 16, blood pressure 132/85. She is saturating well on room air. She is not in any great discomfort. She is completely lucid. Eyes: Without conjunctivitis or scleral icterus. Oral cavity: No thrush or hairy leukoplakia. Neck supple without adenopathy. Lungs clear. Back: Straight without tenderness. Cardiac tones: Regular rate and rhythm without murmur. Abdomen soft, nontender. Extremities: The lower extremities appear benign. There is no synovitis, cellulitis, or edema. Left hand is normal. Right hand has about of 3 x 2 cm present on the dorsal right hand over the distal metatarsals. No pus can be expressed from this wound and it is moderately tender but not dramatically so. The remainder of the physical exam is normal including a normal neurologic exam. LABORATORIES: Include white count 5500, normal diff basically. Creatinine 0.91. AST and ALT are moderately elevated, consistent with her diagnosis of hep C. Procalcitonin yesterday 0.96, today 0.69. Urinalysis without white cells. Hep C is pending but I do not think it is really necessary as she is already being followed for that. Blood cultures from the were done and they were negative. Spinal fluid on the was done and was negative. Blood cultures done yesterday are pending. We still have no cultures of her hand despite her visits. IMPRESSION: This patient seems quite toxic given that she has a relatively localized infection in the right hand. The tentative plan according Dr. العراقي is to get a CT scan of her hand and if that appears benign to send her home as she has full range of motion and strength in the right hand and no longer looks toxic. In general I am okay with this plan but I think it might be reasonable to keep her overnight and make sure at least her blood cultures are negative given that she had quite a bit of systemic toxicity from this localized hand infection. It will also be important to make sure that her CT of the hand does not show any bony involvement or abscess, but I think that is unlikely. In view of her history of ongoing IV drug use and apparent failure with Bactrim at home, though it was a very short course, I think it is reasonable to treat her with oritavancin to ensure that this infection resolves and she need not visit the ER anymore with this problem. RECOMMENDATIONS: 1. I would get a MRSA screen of the neck. 2. Will stop the vancomycin and cefepime she is receiving. 3. Will give the patient a single dose of oritavancin. this will of course only work if this is gram-positive but I think that is the overwhelming likelihood in this situation. 4. The patient can be discharged but I would probably inclined to hang on to her at least until tomorrow to see how her systemic toxicity does as well as to ensure that the final reading on the hand CT is available. That scan was just completed but there is, as of yet, no official report. 5. A MRSA screen of the nares will be ordered as this may facilitate, to some degree, our antibiotic choices.
--- NOTE | 2016-11-11 16:50 | DRSVH ---
PROCEDURE: CT HAND RIGHT W/O CONTRAST (60332) INDICATIONS: abscess TECHNIQUE: Noncontrast 1 mm axial sections acquired through the carpal bones, with coronal and sagittal reformat s. For radiation dose reduction, the following was used: automated exposure control, adjustment of mA and/or kV according to patient size. COMPARISON: None. FINDINGS: Image quality: Excellent. Bones: Normal Soft tissues: Diffuse soft tissue swelling is present over the dorsum of the hand at the fourth and f ifth metacarpal level. The swelling appears to be entirely extracapsular and is likely cellulitis in the appropriate clinical setting. No measurable fluid collection is present to indicate drainable abs cess. The area of swelling is estimated at 1.2 cm thick by 3 cm in width by 4.2 cm in line. IMPRESSION: Dorsal medial soft tissue swelling right hand with no definable abscess or early evidence of osteomyelitis.. Dictated by: James Vera M.D. on 11/11/2016 at 16:42 Approved by: James Vera M.D. on 11/11/2016 at 16:47
[2016-11-11] MEDS ORDERED: Vancomycin Inj 1,000 MG in IV Premix 1 EACH IV SCH (17:00)
--- NOTE | 2016-11-11 18:50 | NUR ---
Pain/PO Morphine Pt c/o headache today and pain in hand. PO 7.5mg PO Morphine given; effective. Pt states, "headache better, pain in hand gone."
--- NOTE | 2016-11-11 18:53 | NUR ---
IV Oritavancin IV Oritavancin started today; pt had only 24gauge in L hand placed by IV therapy. IV Oritavancin to be flushed only with D5 not NS per pharmacy and can only run at 100mls/hr instead of 333.33 as recommended due to small gauge of IV start. Pharmacy notified; no new orders. Will continue to monitor with frequent rounds.
[2016-11-12] MEDS: Heparin 5,000 Unit/mL Inj SUBQ SCH ×2 (03:25→08:30)
[2016-11-12 05:24] VITALS: PULSE 81
[2016-11-12 05:48] VITALS: BP 135/86; PULSE 76; RESP 16; O2SAT 98
--- NOTE | 2016-11-12 06:27 | NUR ---
IV/pain/anxiety Pt is alert, oriented, and able to make needs known. Pt complaint of pain and discomfort on left hand IV site right after IV Oritavancin completion. IV site was red and puffy. IV removed, heat then Ice applied per pharmacy recommendation and extremity elevated under pillow. New IV site inserted on on left forearm and pt states much relief on left hand. No concerns on new IV site for far. Medicated for headache with morphine 7.5mg PO x2 this shift with some relief reported. c/o being anxious of going on withdrawal. MD made aware and ativan 0.25ml administered per order. Pt is resting comfortably in bed and call light w/in reach. Relief reported after ativan administration. Will continue to monitor.
--- NOTE | 2016-11-12 07:34 | NUR ---
V-tach Per Heading Repairer; 5 beats v-tach, pt not symptomatic and sleeping. Will alert MD Red Team and monitor with frequent rounds.
--- NOTE | 2016-11-12 08:01 | PCM.DIMED ---
Discharge Instructions Date of Service Nov 12, 2016 Dates of Hospitalization Nov 10, 2016 at 20:55 Discharge Diagnosis Discharge Diagnosis #Right hand abscess second to IV drug use; failed outpatient treatment, present on admission; ongoing #Hepatitis C infection; present on admission; ongoing #Chronic IV drug and alcohol abuse Diet Discharge Diet: No restrictions Activity Discharge Activity: No restrictions Call your provider Call your provider for: Fever or Chills, Shortness of breath, Bleeding, Chest pain, Vomitting, Excessive diarrhea, Weakness (unilateral) Patient Instructions Patient Instructions You were hospitalized due to right hand abscess. Incision and drainage done in the emergency room. You received oritavancin /long-acting antibiotic. Please follow-up with PCP in 1 week. Please follow up with outpatient chemical dependency clinic for help of IV drug abuse. Follow-up Provider: Kaushal Alford MD Follow-up with PCP in: 1 week Paulie العراقي MD Nov 12, 2016 08:01
[2016-11-12 08:36] VITALS: BP 138/96; PULSE 81; RESP 14; O2SAT 99
--- NOTE | 2016-11-12 09:46 | NUR ---
Discharge Pt to discharge to home; 1 IV access discontinued; c/o headache "2/10 per pt and tolerable, request no pain medications." A&Ox3, able to RODRIGUEZ, steady gait, VSS. Pt in a hurry to make appt at 10AM at Methadone clinic in [place]. Pt given written and verbal instructions to f/u with PCP within 1 week and to f/u with outpatient [facility]one Clinic appt time 10; pt instructed to seek medical attention if s/s return or progress worse and states verbal understanding of all instructions. No Rx's given this visit. Pt walked off unit by RN with all personal belongings.
--- NOTE | 2016-11-12 15:08 | PCM.DC.MED ---
Discharge Summary Date of Service Nov 12, 2016 Dates of Hospitalization Date of Hospital Admission Nov 10, 2016 at 20:55 Date of Discharge: Nov 12, 2016 Providers: Admitting Physician: Jordyn Mahajan DO Primary Care Physician: Kaushal Alford MD Attending Physician: Paulie العراقي MD Diagnosis at Time of Discharge Diagnosis at Time of Discharge #Right hand abscess second to IV drug use; failed outpatient treatment, present on admission; ongoing #Hepatitis C infection; present on admission; ongoing #Chronic IV drug and alcohol abuse Consultations ID Dr Petit Procedures XRay, CTs & MRIs PROCEDURE: CT HAND RIGHT W/O CONTRAST ([id number]) INDICATIONS: abscess TECHNIQUE: Noncontrast 1 mm axial sections acquired through the carpal bones, with coronal and sagittal reformats. For radiation dose reduction, the following was used: automated exposure control, adjustment of mA and/or kV according to patient size. COMPARISON: None. FINDINGS: Image quality: Excellent. Bones: Normal Soft tissues: Diffuse soft tissue swelling is present over the dorsum of the hand at the fourth and fifth metacarpal level. The swelling appears to be entirely extracapsular and is likely cellulitis in the appropriate clinical setting. No measurable fluid collection is present to indicate drainable abscess. The area of swelling is estimated at 1.2 cm thick by 3 cm in width by 4.2 cm in line. IMPRESSION: Dorsal medial soft tissue swelling right hand with no definable abscess or early evidence of osteomyelitis.. Dictated by: James Vera M.D. on 11/11/2016 at 16:42 Brief History per HPI 38-year-old female with history of IV heroin and methamphetamine use, MRSA abscesses, and recent hep C diagnosis presents to the emergency department due to 5 days of right hand pain, nausea and vomiting, and fever. The patient states that 5 days ago she began noticing increased erythema, swelling, and pain over the medial dorsal surface (fifth MCP joint) after injecting heroin into that area the day before. The patient states that she presented on that date emergency department, although previous presentation on November 01 was due to shaking, subjective fevers, nausea and vomiting following a heroin injection. In any case, the patient presented yesterday and the abscess was drained without difficulty. She was discharged with Bactrim. She returns today due to continuing nausea vomiting and increased swelling of the abscess. She states that she has had a measured fever of 103, and is experiencing chills, nausea, and nonbloody emesis 10 daily for the last 3 days. Patient also states she is lost her appetite. She denies any diarrhea, dizziness, lightheadedness, abdominal pain, chest pain, shortness of breath, tingling or loss of sensation. Patient has been using heroin for about 6 years and previously got clean for about 2 before relapsing. The patient was on methadone before moving to [place] where she was unable to continue methadone use, causing her to fly home in relapse. Patient is attempting to get back into rehabilitation. 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 Patient also had a previous history of methamphetamine use as well as alcohol. Patient reports that Dr. Hamilton diagnosed her with hepatitis C last week, she is yet to start treatment. In the emergency department the wound is again being drained. The patient was given 1 L normal saline and promethazine for nausea. Blood work shows an elevated pro-calcitonin, LFTs, acute kidney injury, and multiple other electrolyte imbalances. There is no leukocytosis. Urine was also clean. Blood cultures were obtained. Hospital Course 38-year-old female with history of IV heroin and methamphetamine use, MRSA abscesses, and recent hep C diagnosis presents to the emergency department due to 5 days of right hand pain, nausea and vomiting, and fever. #Right hand abscess second to IV drug use; failed outpatient treatment, present on admission; ongoing -Patient is a persistent and chronic IV drug user with abscesses occupying most of her venous access in the upper extremities -Patient was recently seen for the abscess which was drained and reaccumulated within 24 hours -no osteomyelitis on CT -Debridement done in the emergency department -Blood cultures NGTD -Procalcitonin 0.96 -initially treated with Vancomycin and cefepime -Lactic acid normal -CT of right hand no abscess -recieved a dose of oritavancin discharge home off abx #Hepatitis C infection; present on admission; ongoing -Patient reports that she was recently diagnosed with hepatitis C by Dr. Kenny -Elevated LFTs -Last record in [facility] (reviewed outpatient records) indicates last appointment was January 2016 at which time the patient had not started treatment due to ongoing alcohol use -Viral load pending,f/u outpt -Follow-up with GI as outpatient #Chronic IV drug and alcohol abuse -Patient is attempting to get back into rehabilitation -She stopped previously but relapsed after she lost contact with methadone -Social work resource info given Disposition:discharged home condition stable Exam Vital Signs (Last) Date Time Temp Pulse Resp B/P Pulse Ox O2 Delivery O2 Flow Rate FiO2 11/12/16 08:36 36.7 81 14 138/96 99 Room Air Exam General: Cooperative and unkept female who appears older than stated age HEENT: PERRLA, EOMI, nonicteric, membranes dry Lymph: No lymphadenopathy Cardio: Regular rate and rhythm no murmurs rubs or gallops, pulses equal upper and lower extremity Respiratory: CTA bilaterally, no wheezes, no crackles, good respiratory effort GI: Soft, positive bowel sounds, nontender, nondistended : no giron in place Extremities: No edema,sensation intact, numerous medium and large sized nodules throughout the upper extremities. Right hand is swollen dorsally. No fluctuance.tender Psych: Appropriate mood and affect Neuro: CN II through XII grossly intact, sensation intact throughout Skin: No rash, no ecchymosis, warm, dry Test 11/10/16 18:11 11/10/16 19:53 11/11/16 05:20 Magnesium Level 1.9mg/dL (1.6-2.6) Lipase 11U/L (13-60) Urine Color Dark yellow (YELLOW) Urine Appearance Slightly cloudy Urine pH 5.5 (5.0-8.0) Urine Specific [place] 1.030 (1.003-1.035) Urine Protein 30mg/dL (NEG,TRACE) Urine Glucose (UA) Negativemg/dL (NEGATIVE) Urine Ketones Tracemg/dL (NEGATIVE) Urine Occult Blood Trace (NEGATIVE) Urine Nitrite Negative (NEGATIVE) Urine Bilirubin Negative (NEGATIVE) Urine Urobilinogen Normalmg/dL (NORMAL) Urine Leukocyte Esterase Negative (NEGATIVE) Urine RBC 0-2/hpf (0-2) Urine WBC 0-5/hpf (0-5) Urine Epithelial Cells Moderate/hpf (NONE-MOD) Urine Crystals None seen (NONE SEEN) Urine Bacteria Few/hpf (NONE-FEW) Urine Hyaline Casts 5/20/lpf (NONE) Urine Granular Casts None seen (NONE SEEN) Urine Waxy Casts None seen (NONE SEEN) Urine Red Blood Cell Casts None seen (NONE SEEN) Urine White Blood Cell Casts None seen (NONE SEEN) Urine Mucus Present (None Seen) Urine Trichomonas None seen (NONE SEEN) Urine Yeast None (NONE SEEN) Urinalysis Comment None Urine Culture Reflexed Not indicated White Blood Count 5.5th/mm3 (3.8-10.1) Red Blood Count 4.04mil/mm3 (3.90-5.20) Hemoglobin 12.8g/dL (12.0-15.6) Hematocrit 37.7% (35.0-46.0) Mean Corpuscular Volume 93.3fL (81-100) Mean Corpuscular Hemoglobin 31.7pg (27.0-35.0) Mean Corpuscular Hemoglobin Concent 34.0% (32.0-37.0) Red Cell Distribution Width 12.0% (12.3-15.4) Platelet Count 254bil/L (150-400) Neutrophils (%) (Auto) 48.7% (40-74) Lymphocytes (%) (Auto) 34.9% (14-46) Monocytes (%) (Auto) 14.5% (4-12) Eosinophils (%) (Auto) 1.5% (0-5) Basophils (%) (Auto) 0.2% (0-3) Sodium Level 135mEq/L (134-144) Potassium Level 3.9mEq/L (3.5-5.2) Chloride Level 93mEq/L (97-108) Carbon Dioxide Level 24mmol/L (18-29) Blood Urea Nitrogen 15mg/dL (6-24) Creatinine 0.91mg/dL (0.57-1.00) Estimat Glomerular Filtration Rate 95mL/min (>59) Glucose Level 98mg/dL (60-99) Lactic Acid Level 0.6mmol/L (0.4-2.0) Calcium Level 9.3mg/dL (8.5-10.1) Total Bilirubin 1.1mg/dL (0.0-1.2) Aspartate Amino Transf (AST/SGOT) 82U/L (0-50) Alanine Aminotransferase (ALT/SGPT) 35U/L (0-32) Alkaline Phosphatase 80U/L (25-150) Total Protein 7.8g/dL (6.4-8.4) Albumin 4.0g/dL (3.4-5.0) Procalcitonin 0.69ng/mL (0.00-0.08) Discharge Medications As needed Promethazine (Promethazine) 25 Mg Tablet 25 MG PO Q6H PRN PRN For Nausea Prescribed by: BONNY RODRÍGUEZ MD Followup Plan Disposition: home Discharge Diet: No restrictions Discharge Activity: No restrictions Patient Instructions You were hospitalized due to right hand abscess. Incision and drainage done in the emergency room. You received oritavancin /long-acting antibiotic. Please follow-up with PCP in 1 week. Please follow up with outpatient chemical dependency clinic for help of IV drug abuse. Follow-up Provider: Kaushal Alford MD Follow-up with PCP in: 1 week Time spent 35 minutes counselling on substance abuse copies to: Kaushal Alford MD, Melaku MD Nov 12, 2016 15:07
[2016-11-12] MEDS ORDERED: Vancomycin Serum Trough XX ONE (16:30)
== END 2016-11-12 09:39 | disposition home or self-care (01) ==
LOC: SED 16:49 → OSC 20:55
PROVIDERS: ADMIT Internal Medicine; ATTEND Internal Medicine
DX: L02.511 Cutaneous abscess of right hand (principal); F11.20 Opioid dependence, uncomplicated; F15.20 Other stimulant dependence, uncomplicated; B19.20 Unspecified viral hepatitis C without hepatic coma; F10.20 Alcohol dependence, uncomplicated; Z86.14 Personal history of Methicillin resistant Staphylococcus aureus infection; G43.909 Migraine, unspecified, not intractable, without status migrainosus; N17.9 Acute kidney failure, unspecified; F17.210 Nicotine dependence, cigarettes, uncomplicated
CPT/HCPCS: 10060; 36415; 73200; 80053; 81000; 83605; 83690; 83735; 84145; 85025; 87040; 87522; 87641; 96361; 96365; 96366; 96367; 96375; 99285; G0378; J0692; J1644; J2060; J2270; J2407; J2550; J3370; J7030; J7070

== ENCOUNTER 2016-11-15 18:56 | Emergency (ER) | payer OTHER ==
[~2016-11-15] VITALS: Ht 170.2 cm; Wt 70.5 kg
[2016-11-15 19:16] VITALS: BP 129/84; PULSE 79; RESP 16; O2SAT 95
--- NOTE | 2016-11-15 19:41 | ED.REPORT ---
HPI-Rash / Abscess Date of Service Nov 15, 2016 ED Provider: Dante Vieyra MD A 46 year old female with a history of IV heroin and methamphetamine abuse, MRSA with frequent abscesses and hepatitis C presents to the ED complaining of an abscess. The pt was recently admitted for abscesses and was on antibiotics while in the hospital. The antibiotics were discontinued when she was discharged two days ago, and an abscess recurred on her right forearm. The pt is now experiencing significant pain in the area. Nursing Notes Stated Complaint: INFECTED IV SITE, RECURRING INFECTION Chief Complaint: Skin Rash/Abscess Nursing Notes Reviewed: Yes Allergies: Coded Allergies: cephalexin (Verified Allergy, Severe, HIVES, RESP DIFFICULTY, 11/10/16) clindamycin (Verified Allergy, Intermediate, Hives, 11/10/16) Scheduled PRN Promethazine (Promethazine) 25 Mg Tablet 25 MG PO Q6H PRN PRN For Nausea General Time Seen by MD: 19:41 Chief Complaint Abscess Hx Obtained From: Patient Arrived By: Walk-in Onset Occurred: 2 days ago Symptom Duration: Since onset Recent Healthcare: Recent doctor visit, Recent hospitalization Similar Sx Previous: Yes Past Medical History Past Medical History IV heroin and methamphetamine abuse MRSA - frequent abscesses Hep C Reports: Migraines Past Surgical History 2 elective breast augmentation surgeries 1994 and 2008, knee surgery bladder surgery Smoking History Never Smoker Social History Alcohol Use: Denies alcohol use Drug Use: IV drugs, Meth Other Social History: Local resident, Homeless 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 Physical Exam Initial Vital Signs Vital Signs (First) Date Time Temp Pulse Resp B/P Pulse Ox O2 Delivery O2 Flow Rate FiO2 11/15/16 19:16 36.9 79 16 129/84 95 Room Air Initial VS: Reviewed General/Constitutional: Awake, Alert Skin: Color NL, Warm, Dry 3 cm x 3 cm fluctuant abscess on the right mid forearm mild surrounding erythema Head / Eyes: Normocephalic, PERRL, EOMI ENT: Atraumatic, Airway patent, Mucous membranes moist Respiratory / Chest: Atraumatic, Breath sounds NL, Breath sounds = bilat, No respiratory distress Cardiovascular: Heart rate NL, Regular rhythm, Heart sounds NL, No gallop, No murmurs, No rubs Upper Extremity / MS: Full range of motion Lower Extremity / Pelvis / MS: Full range of motion, Neurologic intact, Vascular intact Neurologic: Oriented X3, Speech NL, No motor deficits, No sensory deficits Neck: Atraumatic, Supple, Full range of motion Abdomen: Atraumatic, Soft, Non-tender Back: Atraumatic, Full range of motion Psychiatric: Affect NL, Mood NL Interpretation & Diagnostics Lab Results Interpretation Test 11/15/16 20:00 Hold Purple Top Tube Received (Received) Hold Blue Top Tube Received (Received) Hold [place] Top Tube Received (Received) Hold [place] Top Tube Received (Received) Procedures Incision & Drainage Abscess I & D Abscess: 4 cm incision Time: 23:47 Procedure Performed by: ED physician Consent / Setup / Site Prep: Informed consent provided, Consent from patient , Time-out performed, Hand hygiene observed, Stand sterile technique, Sterile drapes applied Location of Abscess: right forearm Skin Preparation Agent: Betadine, Normal saline Local Anesthesia: Lidocaine w epi 2% Incised Abscess with Scalpel: #11 Pus Drained: Purulent discharge, Bloody Irrigation: Yes Post-Procedure / Complications: Packing placed, Culture obtained, Gram stain ordered, Dressing applied, No complications, Condition improved, Tolerated procedure well, Patient stable Re-Eval/Medical Decision Med Decision/Clinical Course She is a 46-year-old female with a history of IV drug use who presents with an abscess about her right forearm. She has a history of recurrent abscesses as well as MRSA and received Oritavancin 4 days ago. Here in the emergency department she does states no signs of systemic infection and is afebrile. Hemodynamically stable. Incision and drainage was performed as documented above. She will return in 48 hours for packing removal. The patient is covered for staph from the Oritavancin injection which she previously received after discussing this with pharmacy we do not feel that initial antibiotics are needed. At this time I feel that she is appropriate for discharge. Prior to discharge follow-up and return precautions were reviewed in detail with the patient who verbalized understanding and agreement with the plan. The patient was discharged in stable condition. Source of Hx: Old records Re-Evaluation/Progress : Time of Eval: 23:47 Patient Status: Condition improved Re-Evaluation/Progress Note: Pt rechecked and I&D is performed. The diagnosis and plan for discharge are discussed. The pt understands and agrees with the plan. All questions are addressed at this time. Counseled Regarding: Diagnosis, Need for follow-up, When/why to return to ED Discharge & Departure Impression: Primary Impression: Abscess Additional Impressions: Cellulitis Site of cellulitis: extremity Site of cellulitis of extremity: upper extremity Laterality: right Qualified Code: L03.113 - Cellulitis of right upper limb IV drug abuse Disposition: Home Discharge Condition All VS Reviewed: Yes Condition: Stable Patient Instructions: Abscess (ED) Additional Instructions: Thank you for seeking care at the emergency room. Our primary goal today in the Emergency Department was to evaluate you for any life-threatening conditions. Your evaluation was reassuring. You will be discharged with a prescription for Clindamycin. Take this antibiotic as directed. You should follow-up with your primary doctor or the Emergency Department to have your packing removed in 48 hours. You should return to the Emergency Department immediately if you develop fevers , chills, worsening redness, swelling, warmth, or any other concerning signs or symptoms. Thank you for letting us partake in your care today. Referrals: Kaushal Alford MD (PCP) Scribe Attestation Portions of this note were transcribed by Isak Robles. I, Dr. Vieyra personally performed the history, physical exam and medical decision-making; I reviewed and confirmed the accuracy of the information in the transcribed note. copies to: Kaushal Alford MD, Beck O MD Nov 15, 2016 19:41 ISAK ROBLES Nov 15, 2016 23:45
[2016-11-15] MEDS ORDERED: Lidocaine 2%-Epi 1:100,000 20 mL Inj SUBQ ONE (23:40)
[2016-11-16 00:44] VITALS: BP 121/75; PULSE 68; RESP 20; O2SAT 99
== END 2016-11-16 00:45 | disposition home or self-care (01) ==
LOC: SED 18:56
DX: L02.413 Cutaneous abscess of right upper limb (principal); L03.113 Cellulitis of right upper limb; F19.10 Other psychoactive substance abuse, uncomplicated; Z86.14 Personal history of Methicillin resistant Staphylococcus aureus infection; Z88.1 Allergy status to other antibiotic agents

== ENCOUNTER 2016-12-19 22:26 | Emergency (ER) | payer OTHER ==
[~2016-12-19] VITALS: Ht 170.2 cm; Wt 61.0 kg
[2016-12-19 23:04] VITALS: BP 13/91; PULSE 78; RESP 18; O2SAT 97
--- NOTE | 2016-12-20 00:56 | ED.REPORT ---
HPI-Rash / Abscess Date of Service Dec 20, 2016 ED Provider: Jamal Lentz MD Pt is a 46 year old female with a history of IV heroin and methamphetamine abuse , frequent abscesses, and hepatitis C who presents to the ED complaining of a painful abscess to her right forearm onset 2 months ago. She has had similar abscesses from her IVDA, but she denies injecting into the abscess for several months. She denies fever, chills, rash, nausea, or vomiting. Nursing Notes Stated Complaint: ABSCESS Chief Complaint: Skin Rash/Abscess Nursing Notes Reviewed: Yes Allergies: Coded Allergies: cephalexin (Verified Allergy, Severe, HIVES, RESP DIFFICULTY, 11/10/16) clindamycin (Verified Allergy, Intermediate, Hives, 11/10/16) Scheduled PRN Clonidine (Clonidine) 0.2 Mg Tablet 0.2 MG PO BID PRN PRN Withdrawal Symptoms Promethazine (Promethazine) 25 Mg Tablet 25 MG PO Q6H PRN PRN For Nausea General Time Seen by MD: 00:55 Chief Complaint Abscess Hx Obtained From: Patient Arrived By: Walk-in Onset Occurred: More than a week ago... 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 Physical Exam Initial Vital Signs Vital Signs (First) Date Time Temp Pulse Resp B/P Pulse Ox O2 Delivery O2 Flow Rate FiO2 12/19/16 23:04 36.2 78 18 13/ 97 Room Air Initial VS: Reviewed Head / Eyes: Atraumatic, Normocephalic Neck: Supple, Full range of motion Abdomen / GI: Soft, Non-tender Neurologic: Alert, Oriented, Nonfocal Psychiatric: Mood/affect normal, Behavior normal, Normal thought content General/Constitutional: Awake, Alert Skin: Warm, Dry Abscess distal to antecubital fossa on R arm Respiratory / Chest: Atraumatic, Breath sounds NL, Breath sounds = bilat, No respiratory distress Cardiovascular: Heart rate NL, Regular rhythm, Heart sounds NL Procedures Incision & Drainage Abscess I & D Abscess: 1.5 cm incision Dissected bluntly Time: 02:10 Procedure Performed by: ED physician Consent / Setup / Site Prep: Informed consent provided, Consent from patient , Time-out performed, Hand hygiene observed, Stand sterile technique, Standard surgical scrub, Sterile drapes applied Location of Abscess: Right forearm Skin Preparation Agent: Hibiclens - Chlorhexidine Incised Abscess with Scalpel: #15 Pus Drained: Medium, Purulent discharge Irrigation: Copious Post-Procedure / Complications: Packing placed (1/4 inch iodoform gauze), Drain placed, Dressing applied, No complications, Condition improved, Tolerated procedure well, Patient stable Re-Eval/Medical Decision Med Decision/Clinical Course 46-year-old presents with an abscess in her right antecubital fossa. Ultrasound demonstrates a cavity fairly deep in the area attracts inferiorly, with his closest approach to the skin superiorly and about a half a centimeter deep. This was incised and drained in standard fashion with moderate pus produced. Culture was obtained. Iodoform pack placed. Discharged in stable improved condition. Source of Hx: Old records Re-Evaluation/Progress : Time of Eval: 02:10 Patient Status: Condition improved Re-Evaluation/Progress Note: Patient rechecked. Performed I&D procedure. Discussed plan for discharge. Patient understands and agrees with plan. F/U instructions and RTER warnings given. All questions addressed at this time. Counseled Regarding: Diagnosis, Lab results, Need for follow-up, When/why to return to ED Discharge & Departure Shift Change Sign-Out Response to Therapy: Improved Impression: Primary Impression: Abscess Additional Impressions: IV drug abuse Heroin abuse Disposition: Home Discharge Condition All VS Reviewed: Yes Condition: Stable Patient Instructions: Abscess Follow-up (ED), Abscess Incision and Drainage (DC ) Additional Instructions: Apply a hot wet washcloth to the drained area three times daily to keep it moist and draining. Reapply fresh gauze dressing after each soak. After forty- eight hours, remove the drain. Continue hot soaks and bacitracin dressings until the wound heals. Follow-up with your doctor in the office. Follow-up with orthopedics as planned. Return if any immediate issues. Good luck with your recovery. Clonidine twice daily for withdrawal symptoms. Referrals: Kaushal Alford MD (PCP) Scribe Attestation Portions of this note were transcribed by Senia Pan. I, Dr. Lentz, personally performed the history, physical exam and medical decision-making; I reviewed and confirmed the accuracy of the information in the transcribed note. copies to: Kaushal Alford MD, Christopher W MD Dec 20, 2016 00:56 Senia Pan Dec 20, 2016 02:21
[2016-12-20] MEDS ORDERED: CLON0.2T PO (02:24)
[2016-12-20 02:30] VITALS: BP 105/70; PULSE 80; RESP 18; O2SAT 97
== END 2016-12-20 02:31 | disposition home or self-care (01) ==
LOC: SED 22:26
DX: L02.413 Cutaneous abscess of right upper limb (principal); F11.10 Opioid abuse, uncomplicated; F15.10 Other stimulant abuse, uncomplicated; F41.8 Other specified anxiety disorders; B19.20 Unspecified viral hepatitis C without hepatic coma; Z86.14 Personal history of Methicillin resistant Staphylococcus aureus infection; Z59.0 Homelessness; Z88.1 Allergy status to other antibiotic agents